=== PATIENT | male | born 2000 | race Caucasian/White ===

== ENCOUNTER 2020-04-11 10:23 | Emergency (ER) | payer OTHER ==
[~2020-04-11] VITALS: Ht 182.9 cm; Wt 117.6 kg
--- NOTE | 2020-04-11 11:33 | REP ---
INDICATION: head injury. COMPARISON: None. TECHNIQUE: CT BRAIN PERFORMED IN THE AXIAL PLANE. CORONAL RECONSTRUCTION IMAGES ARE PERFORMED. FINDINGS: THE VENTRICLES ARE NORMAL IN SIZE AND POSITION. THERE IS NO MIDLINE SHIFT OR MASS EFFECT. STANLEY-WHITE DIFFERENTIATION IS WELL MAINTAINED. THERE IS NO ACUTE INTRACRANIAL HEMORRHAGE OR EXTRA-AXIAL FLUID COLLECTION. BONE WINDOW EXAMINATION IS UNREMARKABLE. VISUALIZED MASTOID AIR CELLS AND PARANASAL SINUSES ARE CLEAR. IMPRESSION: NEGATIVE NONCONTRAST CT BRAIN. <Electronically signed by Kenneth Green > 04/11/20 [id number]
[2020-04-11] MEDS ORDERED: KETOROLAC TROMETHAMINE 10 MG TAB PO ONE (12:20)
[2020-04-11] MEDS ORDERED: CYCLOBENZAPRINE 5MG TABLET PO ONE (12:20)
--- NOTE | 2020-04-11 14:17 | REP ---
INDICATION: head injury. COMPARISON: None. TECHNIQUE: Trauma CT cervical protocol with coronal and sagittal bone window reconstructions. FINDINGS: Sagittal reconstruction show some loss of lordosis which may be due to positioning collar. There is no reversal of lordosis and the disc space heights, vertebral body heights and alignment are normal. There is no prevertebral swelling. The dens shows normal relationship to the anterior arch of C1 and the lateral masses as well. There is no central canal or foraminal stenosis. Craniocervical junction and the cervicothoracic junction aligns normally. The posterior elements show the spinous processes, lamina, pedicles, facets, transverse processes and the transverse foraminal all intact. IMPRESSION: Negative CT cervical spine for fracture, malalignment, spinal or foraminal stenosis. Craniocervical junction and cervicothoracic alignment were normal. Nothing acute. <Electronically signed by Kenneth Green > 04/11/20 [id number]
[2020-04-11 14:21] VITALS: BP 141/75
== END 2020-04-11 14:24 | disposition home or self-care (01) ==
LOC: M ED 10:23
DX: S09.90XA Unspecified injury of head, initial encounter (principal); S13.4XXA Sprain of ligaments of cervical spine, initial encounter; W00.0XXA Fall on same level due to ice and snow, initial encounter; Y92.9 Unspecified place or not applicable; Y93.9 Activity, unspecified; Y99.1 Military activity